=== PATIENT | female | born 2000 | race Caucasian/White ===

== ENCOUNTER 2022-12-18 11:57 | Emergency (ER) | payer OTHER ==
--- OUTSIDE RECORDS SUMMARY | 2022-12-18 12:08 | XMS REPORT | Continuity of Care Document ---
:2000 Author Organization [facility] t Address [address] [place] [address] Care Team Providers Name Role Phone ROBB JACKSON Attending Clinician Unavailable Robb Jackson Attending Clinician ROBB JACKSON Admitting Clinician Unavailable Robb Jackson Admitting Clinician Payers Payer Name Policy Type Policy Number Effective Date Expiration Date [facility] [id number] 2021 2024 PLAN STAR 00:00:00 00:00:00 Problems Condition Condition Condition Status Onset Resolution Last Treating Co mments Source Name Details Category Date Date Treatment Clinician Date Patient Patient Problem Active 2021-07-28 Me conrad currently currently 07-21 06:35:02 l 00:00: Henry mortensen (finding) (finding) 00 Active 07/21/2021 Problem 07/28/2021 [facility] ENCOUNTER ENCOUNTER Diagnosis Active 2019-102021-07-21 Memoria FOR FOR 2-17 19:17:00 l VAGINAL VAGINAL 00:00: [place] DELIVERY DELIVERY 00 Active 10/10/2020 [facility] Encounter Encounter Problem 2021-07-28 Memoria for for 06:35:02 l full-term full-term Herm agustin uncomplica uncomplica emily emily delivery delivery 07/28/2021 [facility] ENCOUNTER Diagnosis Active 2021-07-21 Memoria FOR ENCOUNTER 19:17:00 l FULL-TERM FOR [place] UNCOMPLICA FULL-TERM EMILY DE UNCOMPLICA EMILY DE Active [facility] Allergies, Adverse Reactions, Alerts Allergy Allergy Status Severity Reaction(s) Onset Inactive Treating Comm ents Source Name Type Date Date Clinician No Known No Known Active Memori a Medicati Medicati l on on [place] Allergie Allergie s s Other Other Active Memoria Food Food l Allergy< Allergy< Henry n sup>1</s sup>1</s up> up> Social History Smoking Status Start Date Stop Date Source Social History [facility] Medications Ordered Filled Start Stop Current Ordering Indication Dosage Frequency Signature Comments Components Source Medication Medication Date Date Medication? Clinician (SIG) Name Name ferrous No Notes: Memoria sulfate 07-23 Give with l 18:00: food. iron [place] elemental [id number] as ferrous sulfate Dose=___mg elemental iron tramadol Yes 50 mg = 1 Ramin akiko hydrochlori 07-23 tab, PO, l de 50 MG 14:20: Q6H, PRN Jena nn Oral Tablet 00 Pain, X 10 day, # 40 tab, 0 Refill(s) Docusate Yes 100 mg = 1 Mem oria Sodium 100 07-23 cap, PO, l MG Oral 14:19: BID, PRN Henry n Capsule 00 Constipati on, # 20 cap, 0 Refill(s), Pharmacy: [facility] #[id number], 154.94, cm, 07/21/21 9:33:00 CDT, Height, 95.4, kg, 07/21/21 9:33:00 CDT, Weight ferrous Yes 325 mg = 1 Ramin akiko sulfate 325 07-23 tab, PO, l mg oral 14:19: BID, give Jena nn enteric 00 with coated orange tablet juice, # 60 tab, 1 Refill(s), [id number], 154.94, cm, 07/21/21 9:33:00 CDT, Height, 95.4, kg, 07/21/21 9:33:00 CDT, Weight tramadol No Notes: Not Mem oria hydrochlori 07-23 to exceed l de 50 MG 14:17: 400mg/day. Her rodriguez Oral Tablet 00 (Same As: Ultram) No 1 tab, Memoria Multivitami 07-22 Route: PO, l ns oral 14:00: Drug Form: Herm agustin tablet 00 TAB, Dosing Weight 95.4, kg, Daily, Start date: 07/22/21 9:00:00 CDT, Duration: 30 day, Stop date: 08/20/21 9:00:00 CDT, 0 Saline No Notes: Memoria Flush 0.9% 07-22 Same as: l 14:00: BD Posiflush Sterile Ketorolac No 4 days Memor ia 07-22 l 05:00: MEDICATION WASTE Product Size: 30 mg Product Wasted: ___ mg Ibuprofen No Notes: Memori a 07-22 (Same as: l 05:00: Motrin) "Do Not Crush" Take with food. M-M-R II No Notes: Memoria 07-22 (Same as: l 04:00: M-M-R II) (measles-m umps-rubel la virus vaccine 0.5 ml INJ VL) WASTE: F/P - Red; E -Red GIVE PRIOR TO DISCHARGE Calcium No 1,000 mL, Memor ia Chloride 07-22 1,000 l 0.0014 04:00: ml/hr, MEQ/ML / 00 Infuse Potassium Over: 1 Chloride hr, Route: 0.004 IV, 1,000, MEQ/ML / Drug form: Sodium INJ, Chloride ONCALL, 0.103 Dosing MEQ/ML / Weight Sodium 95.4 kg, Lactate Start 0.028 date: MEQ/ML 07/21/21 Injectable 23:00:00 Solution CDT, Duration: 1 doses or times, For OB hemorrhage per physician direction, 0 Oxytocin No Notes: Memoria 07-22 (Same as: l 04:00: Pitocin) Hazardous Drug Group 3:Reproduc tive risk Hazardous Drug -- Refer to safe handling procedure PPE Matrix Misoprostol No Notes: Ramin akiko 07-22 (Same l 04:00: as:Cytotec ) Hazardous Drug Group 3:Reproduc tive risk Hazardous Drug -- Refer to safe handling procedure PPE Matrix Take with food Methylergon No Notes: Ramin akiko ovine 07-22 (Same l 04:00: as:Metherg 00 ine) Hazardous Drug Group 3:Reproduc tive risk Hazardous Drug -- Refer to safe handling procedure PPE Matrix Atropine No Notes: Memoria Sulfate 07-22 (Same As: l 0.025 MG / 04:00: Lomotil) rodriguez Diphenoxyla 00 MAX Adult te dose = 8 Hydrochlori tabs/day de 2.5 MG Oral Tablet Carboprost No Notes: Memor ia 07-22 (Same As: l 04:00: Hemabate) Tranexamic No Notes: Memor ia Acid 07-22 (Same As: l 04:00: Cyklokapro n) Docusate No Notes: Memoria 07-22 (Same as: l 03:02: Colace) (Do Not Crush) lanolin No Notes: Memoria topical 07-22 (Same l cream 03:02: as:Lanolin Henry n 00 ) Benzocaine No Notes: Memor ia / Menthol 07-22 Same as: l 03:02: Cepacol Simethicone No Notes: Ramni akiko 07-22 (Same as: l 03:02: Mylicon) Oxytocin No Notes: Memoria 07-22 Hazardous l 03:02: Drug Group 3:Reproduc tive risk Hazardous Drug -- Refer to safe handling procedure PPE Matrix Saline No Notes: Memoria Flush 0.9% 07-22 Same as: l 03:02: BD Posiflush Sterile Lactated No 1,000 mL, Ramin akiko Ringers IV 07-22 Rate: 125 l 1,000 mL 03:02: ml/hr, Infuse over: 8 hr, Route: IV, Dosing Weight 95.4 kg, Total Volume: 1,000, see special instructio n for rate while completing infusion from recovery for the 20 Units of Oxytocin., Start date: 07/21/21 22:02:00 CDT, Duration: 3... Bisacodyl No Notes: Memori a 07-22 (Same As: l 03:02: Dulcolax, [place] 00 Bisco-Lax) Naloxone No Notes: Memoria 07-22 Same as l 03:00: Narcan Kend[place] 00 Acetaminoph No Notes: Do M emoria en 07-22 not exceed l 02:21: 4 gm/day. Kendrick 00 (Same as: Tylenol) Acetaminoph No Notes: Ramin akiko en 325 MG / 07-22 (Same as: l Hydrocodone 02:21: [place] Jena nn Bitartrate 00 325/5) Do 5 MG Oral not exceed Tablet 4gm/day of acetaminop hen. Acetaminoph No Notes: Do M emoria en 325 MG / 07-22 not exceed l Hydrocodone 02:21: 4gm/day of Kendrick Bitartrate 00 acetaminop 10 MG Oral hen. (Same Tablet as: [place] 325/10) Ondansetron No Notes: Ramin akiko 07-22 (Same as: l 02:21: Zofran) [place] 00 MEDICATION WASTE Product Size: 4 mg Product Wasted: ___ mg Acetaminoph Yes Notes: Max Memoria en 07-22 acetaminop l 02:15: hen 4000 Kendrick 00 mg/day (4 gm/day). (Same as: Tylenol Extra Strength) Ondansetron No Notes: Ramin akiko 07-22 (Same as: l 02:15: Zofran) [place] 00 MEDICATION WASTE Product Size: 4 mg Product Wasted: ___ mg naloxone No Notes: Memoria 400 07-22 Same as l microgram + 02:15: Narcan Herm agustin Sodium 00 Chloride 0.9% IV 1,000 mL Meperidine Yes Notes: Memor ia 07-22 (Same as: l 02:15: Demerol) Kendrick 00 "Use Precaution in Elderly, Seizure disorders, and Renal impairment " ketOROLAC No IV, ONCE Ramin akiko (ANES) 07-22 l 01:38: Kend[place] 00 ondansetron No Route: IV, Memoria (ANES) 07-22 Drug form: l 01:23: INJ, ONCE, Stop date: 07/21/21 20:23:00 CDT dexamethaso No Route: IV, Memoria ne (ANES) 07-22 Drug form: l 01:23: INJ, ONCE, Kendrick 00 Stop date: 07/21/21 20:23:00 CDT morphine No Route: Memoria Sulfate 07-22 EPIDURAL, l (ANES) 01:23: Drug form: Jena nn 00 INJ, ONCE, Stop date: 07/21/21 20:23:00 CDT phenylephri No Route: IV, Memoria ne (ANES) 07-22 Drug form: l 01:13: INJ, ONCE, Stop date: 07/21/21 20:13:00 CDT glycopyrrol No Route: IV, Memoria ate (ANES) 07-22 Drug form: l 01:08: INJ, ONCE, Stop date: 07/21/21 20:08:00 CDT ePHEDrine No Route: IV, Me moria (ANES) 07-22 Drug form: l 01:08: INJ, ONCE, Stop date: 07/21/21 20:08:00 CDT azithromyci No Route: IV, Memoria n (ANES) 07-22 Drug form: l 01:03: INJ, ONCE, Stop date: 07/21/21 20:03:00 CDT fentaNYL No Route: Memoria (ANES) 07-22 EPIDURAL, l 00:57: Drug form: [place] 00 INJ, ONCE, Stop date: 07/21/21 19:57:00 CDT Nesacaine-M No Route: Ramin akiko PF (ANES) 07-22 EPIDURAL, l 00:57: Drug Form: [place] INJ, ONCE, Stop date: 07/21/21 19:57:00 CDT oxytocin No Route: IV, Mem oria (ANES) 30 07-22 Drug form: l unit 00:49: SOLIris Mortensen Start date: 07/21/21 19:49:00 CDT, Stop date: 07/21/21 20:49:00 CDT Lactated No Route: IV, Mem oria Ringers 07-22 Total l Injection 00:22: Volume: Jena nn IV (ANES) 00 1,000, 1000 mL Start date: 07/21/21 19:22:00 CDT, Stop date: 07/21/21 20:22:00 CDT Famotidine No Notes: Memor ia 07-22 (Same as: l 00:00: Pepcid) [place] 00 Can be dilute in 5-10cc NS IVP: Slow IV push over at least 2 minutes. Citric Acid No Notes: Ramin akiko / sodium 07-22 (Same As: l citrate 00:00: Bicitra) Henry n Calcium No 1,000 mL, Memor ia Chloride 07-22 1,000 l 0.0014 00:00: ml/hr, Kend[place] MEQ/ML / 00 Infuse Potassium Over: 1 Chloride hr, Route: 0.004 IV, 1,000, MEQ/ML / Drug form: Sodium INJ, Chloride ONCALL, 0.103 Dosing MEQ/ML / Weight Sodium 95.4 kg, Lactate Start 0.028 date: MEQ/ML 07/21/21 Injectable 19:00:00 Solution CDT, Duration: 1 doses or times, For OB hemorrhage per physician direction, 0 Oxytocin No Notes: Memoria 07-22 (Same as: l 00:00: Pitocin) Hazardous Drug Group 3:Reproduc tive risk Hazardous Drug -- Refer to safe handling procedure PPE Matrix Misoprostol No Notes: Ramin akiko 07-22 (Same l 00:00: as:Cytotec ) Hazardous Drug Group 3:Reproduc tive risk Hazardous Drug -- Refer to safe handling procedure PPE Matrix Take with food Methylergon No Notes: Ramin akiko ovine - (Same l 00:00: as:Metherg ine) Hazardous Drug Group 3:Reproduc tive risk Hazardous Drug -- Refer to safe handling procedure PPE Matrix Carboprost No Notes: Memor ia - (Same As: l 00:00: Hemabate) Tranexamic No Notes: Memor ia Acid 07-22 (Same As: l 00:00: Cyklokapro Kendrick 00 n) Ancef + No Notes: Memoria sterile 07-21 (Same As: l water 20 mL 23:58: Ancef, Herm agustin Kefzol) MEDICATION WASTE Product Size: 1000 mg Product Wasted: ___ mg Calcium No 1,000 mL, Memor ia Chloride 07-21 Rate: 125 l 0.0014 23:57: ml/hr, Kend[place] MEQ/ML / 00 Infuse Potassium over: 8 Chloride hr, Route: 0.004 IV, Dosing MEQ/ML / Weight Sodium 95.4 kg, Chloride Total 0.103 Volume: MEQ/ML / 1,000, see Sodium special Lactate instructio 0.028 ns when MEQ/ML infusing Injectable 20 Units Solution of Oxytocin., Start date: 07/21/21 18:57:00 CDT, Duration: 30 day, Stop date: 08/20/21 18:56:00 CDT, B... oxytocin 30 No Notes: Ramin akiko units in NS 07-21 Hazardous l 500 mL 23:57: Drug Group Jena nn (Bolus) IV 00 3:Reproduc 10.02 unit tive risk Hazardous Drug -- Refer to safe handling procedure PPE Matrix oxytocin 30 No Notes: Ramin akiko units in NS 07-21 Hazardous l 500 mL IV 23:57: Drug Group He rmann 19.98 unit 00 3:Reproduc tive risk Hazardous Drug -- Refer to safe handling procedure PPE Matrix Ondansetron No Notes: Ramin akiko 07-21 (Same as: l 23:57: Zofran) MEDICATION WASTE Product Size: 4 mg Product Wasted: ___ mg Metoclopram No Notes: Ramin akiko clyde 07-21 (Same as: l 23:57: Reglan) Oxytocin No Notes: Memoria 07-21 Hazardous l 23:57: Drug Group [place] 00 3:Reproduc tive risk Hazardous Drug -- Refer to safe handling procedure PPE Matrix Atropine Yes Notes: Memoria Sulfate 07-21 (Same As: l 0.025 MG / 23:57: Lomotil) Her rodriguez Diphenoxyla 00 MAX Adult te dose = 8 Hydrochlori tabs/day de 2.5 MG Oral Tablet Oxytocin No Notes: Memoria 07-21 Hazardous l 22:28: Drug Group 3:Reproduc tive risk Hazardous Drug -- Refer to safe handling procedure PPE Matrix Oxytocin No Notes: Memoria 07-21 Hazardous l 22:07: Drug Group 3:Reproduc tive risk Hazardous Drug -- Refer to safe handling procedure PPE Matrix Procardia No 10 mg, Memori a 07-21 Route: PO, l 20:14: ONCE, Dosing Weight 95.4, kg, Start date: 07/21/21 15:14:00 CDT, Stop date: 07/21/21 15:14:00 CDT Penicillin No 2,500,000 Me moria G 07-21 unit, 50 l 20:00: mL, Route: IVPB, Drug form: INJ, ABXQ4H, Dosing Weight 95.4, kg, Start date: 07/21/21 15:00:00 CDT, Duration: 30 day, Stop date: 08/20/21 11:00:00 CDT, Infuse over: 30, 0 Procardia No 10 mg, Memori a 07-21 Route: PO, l 19:47: ONCE, Dosing Weight 95.4, kg, Start date: 07/21/21 14:47:00 CDT, Stop date: 07/21/21 14:47:00 CDT Cytotec Yes Notes: Memoria 07-21 (Same l 16:00: as:Cytotec ) Hazardous Drug Group 3:Reproduc tive risk Hazardous Drug -- Refer to safe handling procedure PPE Matrix Take with food Penicillin No Notes: Memor ia G Potassium 07-21 (Same as: l [id number] 16:00: Pfizerpen) Herm agustin UNT/ML 00 Injectable MEDICATION Solution WASTE Product Size: 5,000,000 unit Product Wasted: ___ unit Ibuprofen No Notes: Memori a 07-21 (Same as: l 15:00: Motrin) "Do Not Crush" Take with food. Calcium No 1,000 mL, Memor ia Chloride 07-21 1,000 l 0.0014 15:00: ml/hr, MEQ/ML 00 Infuse Potassium Over: 1 Chloride hr, Route: 0.004 IV, 1,000, MEQ/ML / Drug form: Sodium INJ, Chloride ONCALL, 0.103 Dosing MEQ/ML / Weight Sodium 95.4 kg, Lactate Start 0.028 date: MEQ/ML 07/21/21 Injectable 10:00:00 Solution CDT, Duration: 1 doses or times, For OB hemorrhage per physician direction, 0 Oxytocin No Notes: Memoria 07-21 (Same as: l 15:00: Pitocin) Hazardous Drug Group 3:Reproduc tive risk Hazardous Drug -- Refer to safe handling procedure PPE Matrix Misoprostol No Notes: Ramin akiko 07-21 (Same l 15:00: as:Cytotec ) Hazardous Drug Group 3:Reproduc tive risk Hazardous Drug -- Refer to safe handling procedure PPE Matrix Take with food Methylergon No Notes: Ramin akiko ovine 07-21 (Same l 15:00: as:Metherg ine) Hazardous Drug Group 3:Reproduc tive risk Hazardous Drug -- Refer to safe handling procedure PPE Matrix Atropine No Notes: Memoria Sulfate 07-21 (Same As: l 0.025 MG / 15:00: Lomotil) Her rodriguez Diphenoxyla MAX Adult te dose = 8 Hydrochlori tabs/day de 2.5 MG Oral Tablet Carboprost No Notes: Memor ia 07-21 (Same As: l 15:00: Hemabate) Tranexamic No Notes: Memor ia Acid 07-21 (Same As: l 15:00: Cyklokapro n) PNV No PO, Daily, Memoria 07-21 0 l 14:57: Refill(s) Calcium No 1,000 mL, Memor ia Chloride 07-21 Rate: 125 l 0.0014 14:38: ml/hr, Kendrick MEQ/ML / 00 Infuse Potassium over: 8 Chloride hr, Route: 0.004 IV, Dosing MEQ/ML / Weight Sodium 95.4 kg, Chloride Total 0.103 Volume: MEQ/ML / 1,000, see Sodium special Lactate instructio 0.028 ns when MEQ/ML infusing Injectable 20 Units Solution of Oxytocin., Start date: 07/21/21 9:38:00 CDT, Duration: 30 day, Stop date: 08/20/21 9:37:00 CDT, BSA... oxytocin 30 No Notes: Ramin akiko units in NS 07-21 Hazardous l 500 mL 14:38: Drug Group Jena nn (Bolus) IV 00 3:Reproduc 10.02 unit tive risk Hazardous Drug -- Refer to safe handling procedure PPE Matrix oxytocin 30 No Notes: Ramin akiko units in NS 07-21 Hazardous l 500 mL IV 14:38: Drug Group He rmann 19.98 unit 00 3:Reproduc tive risk Hazardous Drug -- Refer to safe handling procedure PPE Matrix Butorphanol No Notes: Ramin akiko 07-21 (Same As: l 14:38: Stadol) Kend[place] 00 Acetaminoph No Notes: Ramin akiko en 325 MG / 07-21 (Same as: l Hydrocodone 14:38: [place] Jena nn Bitartrate 00 325/5) Do 5 MG Oral not exceed Tablet 4gm/day of acetaminop hen. Acetaminoph No Notes: Do M emoria en 325 MG / 07-21 not exceed l Hydrocodone 14:38: 4gm/day of Kendrick Bitartrate 00 acetaminop 10 MG Oral hen. (Same Tablet as: [place] 325/10) Ondansetron No Notes: Ramin akiko 07-21 (Same as: l 14:38: Zofran) Kendrick 00 MEDICATION WASTE Product Size: 4 mg Product Wasted: ___ mg Lidocaine No Notes: Memori a Hydrochlori 07-21 Preservati l de 10 MG/ML 14:38: ve free. He rmann Injectable 00 (Same as: Solution Xylocaine MPF) Terbutaline No Notes: Ramin akiko 07-21 DO NOT l 14:38: USE IN Kendrick HAND LACER AREA (Same As: Brethine) Dermoplast No Notes: Memor ia 20% topical 07-21 (Same As: l spray 14:38: Dermoplast Henry n 00 ) WASTE: Aerosol - Return to Pharmacy FOR EXTERNAL USE ONLY Oxytocin No Notes: Memoria 07-21 Hazardous l 14:38: Drug Group [place] 00 3:Reproduc tive risk Hazardous Drug -- Refer to safe handling procedure PPE Matrix tetanus/dip No Notes: Ramin akiko hth/pertuss 07-21 Therapeuti l (Tdap) 05:00: c [place] adult/adol 00 Interchang e for Boostrix Immunizations Ordered Immunization Filled Immunization Date Status Commen ts Source Name Name [id number] 2021-04-05 Completed Ramin rial [id number] 00:00:00 Herm agustin [id number] 2021-03-15 Completed Ramin rial [id number] 00:00:00 Herm agustin Vital Signs Vital Name Observation Time Observation Value Comments Source Temperature Oral (F) 2021-07-24 13:00:00 98.2 F [facility] [place] Heart Rate 2021-07-24 13:00:00 [facility] [place] Respitory Rate 2021-07-24 13:00:00 Memori al [place] Systolic (mm Hg) 2021-07-24 13:00:00 Ramin rial [place] Diastolic (mm Hg) 2021-07-24 13:00:00 Mem orial [place] Temperature Oral (F) 2021-07-24 04:00:00 97.9 F [facility] [place] Heart Rate 2021-07-24 04:00:00 [facility] [place] Respitory Rate 2021-07-24 04:00:00 Memori al [place] Systolic (mm Hg) 2021-07-24 04:00:00 Ramin rial [place] Diastolic (mm Hg) 2021-07-24 04:00:00 Mem orial [place] Temperature Oral (F) 2021-07-24 00:00:00 98.3 F [facility] [place] Heart Rate 2021-07-24 00:00:00 [facility] [place] Respitory Rate 2021-07-24 00:00:00 Memori al [place] Systolic (mm Hg) 2021-07-24 00:00:00 Ramin Marks Diastolic (mm Hg) 2021-07-24 00:00:00 Mem yanet Marks Height 2021-07-21 14:33:00 154.94 cm Babak Marks Weight 2021-07-21 14:33:00 Babak Marks BMI Calculated 2021-07-21 14:33:00 Memjammie Pereira Procedures This patient has no known procedures. Encounters Start End Encounter Admission Attending Care Care Encounter Source Date/Time Date/Time Type Type Clinicians Facility Department ID 2021-10-20 Outpatient [facility] [id number] [place] 01:05:36 Health 2021-07-21 Inpatient [facility] 12[address] [facility] 09:19:00 ROBB 2021-07-21 2021-07-24 Inpatient [facility] [id number] Memoria 14:19:00 16:52:00 r Kendrick 24 l [facility] 2021-07-21 2021-07-[address] [facility] [id number] 09:19:00 11:52:00 Robb 24 [place] 2021-07-21 2021-07-[address] [facility] [id number] 09:19:00 11:52:00 Robb Shilpi Adrian Results Test Description Test Time Test Comments Results Result Comments Source HEMATOLOGY 2021-07-22 15:58:00 Test Item Value Reference Range Interpretation Comme nts Hgb (test code = Hgb) 9.5 12.0-16.0 [id number] 15:58:00 Test Item Value Reference Range Interpretation Comments Hct (test code = Hct) 28.5 36.0-48.0 [facility] [id number] 21:14:00 Test Item Value Reference Range Interpretation Comments U Creatinine (test code = U 105.00 Creatinine) [facility] [id number] 21:14:00 Test Item Value Reference Range Interpretation Comments U Protein (test code = U Protein) 21.1 [facility] [id number] 21:14:00 Test Item Value Reference Range Interpretation Comments U Prot/Creat (test code = U 0.20 1 Prot/Creat) [facility] [id number] 14:40:00 Test Item Value Reference Range Interpretation Comments ABO/Rh (test code = ABO/Rh) O POS [facility] [id number] 14:40:00 Test Item Value Reference Range Interpretation Comments Antibody Scrn (test Negative (07/21/21 9:40 code = Antibody Scrn) AM) [facility]2021-09-27 14:40:00 Test Item Value Reference Range Interpretation Comments Rhig Reqd (test code = See Note 1(07/21/21 9:40 Rhig Reqd) AM) [facility]2021-09-27 14:40:00 Test Item Value Reference Range Interpretation Comments Glucose Lvl (test code = Glucose Lvl) 77 70-99 [facility] [id number] 14:40:00 Test Item Value Reference Range Interpretation Comments BUN (test code = BUN) 10 7-22 [facility]2021-09-27 14:40:00 Test Item Value Reference Range Interpretation Comments Creatinine Lvl (test code = Creatinine 0.50 0.50-1.40 Lvl) [facility]2021-09-27 14:40:00 Test Item Value Reference Range Interpretation Comments Sodium Lvl (test code = Sodium Lvl) 136 135-145 [facility] [id number] 14:40:00 Test Item Value Reference Range Interpretation Comments Potassium Lvl (test code = Potassium 4.5 3.5-5.1 Lvl) [facility] [id number] 14:40:00 Test Item Value Reference Range Interpretation Comments Chloride Lvl (test code = Chloride Lvl) 106 95-109 [facility] [id number] 14:40:00 Test Item Value Reference Range Interpretation Comments CO2 (test code = CO2) 22 24-32 [facility] [id number] 14:40:00 Test Item Value Reference Range Interpretation Comments Calcium Lvl (test code = Calcium Lvl) 9.0 8.5-10.5 [facility] [id number] 14:40:00 Test Item Value Reference Range Interpretation Comments Total Protein (test code = Total 6.6 6.4-8.4 Protein) [place] [id number] 14:40:00 Test Item Value Reference Range Interpretation Comments Albumin Lvl (test code = Albumin Lvl) 2.9 3.5-5.0 [place] [id number] 14:40:00 Test Item Value Reference Range Interpretation Comments ALT (test code = ALT) 12 See_Comment [Auto mated message] The system which ge nerated this result transmit emily reference range : <=65. The reference range was not used to interpr et this result as aguila l/abnormal. [place] [id number] 14:40:00 Test Item Value Reference Range Interpretation Comments AST (test code = AST) 23 See_Comment [Auto mated message] The system which ge nerated this result transmit emily reference range : <=37. The reference range was not used to interpr et this result as aguila l/abnormal. [place] [id number] 14:40:00 Test Item Value Reference Range Interpretation Comments Alk Phos (test code = Alk Phos) 152 39-136 [place] [id number] 14:40:00 Test Item Value Reference Range Interpretation Comments Bili Total (test code = Bili Total) 0.2 0.2-1.3 [place] [id number] 14:40:00 Test Item Value Reference Range Interpretation Comments AGAP (test code = AGAP) 12.5 10.0-20.0 [place] [id number] 14:40:00 Test Item Value Reference Range Interpretation Comments B/C Ratio (test code = B/C Ratio) 20 1 6-25 [place] [id number] 14:40:00 Test Item Value Reference Range Interpretation Comments Globulin (test code = Globulin) 3.7 2.7-4.2 [place] [id number] 14:40:00 Test Item Value Reference Range Interpretation Comments A/G Ratio (test code = A/G Ratio) 0.8 1 0.7-1.6 [place] [id number] 14:40:00 Test Item Value Reference Range Interpretation Comments eGFR (test code = eGFR) [id number] 14:40:00 Test Item Value Reference Range Interpretation Comments Segs (test code = Segs) 75.5 45.0-75.0 [place] [id number] 14:40:00 Test Item Value Reference Range Interpretation Comments Lymphocytes (test code = Lymphocytes) 19.4 20.0-40.0 [place] [id number] 14:40:00 Test Item Value Reference Range Interpretation Comments Monocytes (test code = Monocytes) 4.3 2.0-12.0 [place] [id number] 14:40:00 Test Item Value Reference Range Interpretation Comments Eosinophils (test code = 0.3 See_Comment [A utomated message] The Eosinophils) system which ge nerated this result tra nsmitted reference range : <=4.0. The reference r mima was not used to int erpret this result as normal/abnormal . [place] [id number] 14:40:00 Test Item Value Reference Range Interpretation Comments Basophils (test code = 0.5 See_Comment [Aut omated message] The Basophils) system which ge nerated this result tra nsmitted reference range : <=1.0. The reference r mima was not used to int erpret this result as normal/abnormal . [place] [id number] 14:40:00 Test Item Value Reference Range Interpretation Comments Neutrophils # (test code = Neutrophils 7.6 1.5-8.1 #) [place] [id number] 14:40:00 Test Item Value Reference Range Interpretation Comments Lymphocytes # (test code = Lymphocytes 2.0 1.0-5.5 #) [place] [id number] 14:40:00 Test Item Value Reference Range Interpretation Comments Monocytes # (test code 0.4 See_Comment [Aut omated message] The = Monocytes #) system which generated this result tra nsmitted reference range : <=0.8. The reference r mima was not used to int erpret this result as normal/abnormal . [place] [id number] 14:40:00 Test Item Value Reference Range Interpretation Comments Basophils # (test code 0.1 See_Comment [Aut omated message] The = Basophils #) system which generated this result tra nsmitted reference range : <=0.2. The reference r mima was not used to int erpret this result as normal/abnormal . [id number] 14:40:00 Test Item Value Reference Range Interpretation Comments WBC X 10x3 (test code = WBC X 10x3) 10.0 3.7-10.4 [id number] 14:40:00 Test Item Value Reference Range Interpretation Comments RBC X 10x6 (test code = RBC X 10x6) 4.23 4.20-5.40 [place] [id number] 14:40:00 Test Item Value Reference Range Interpretation Comments Hgb (test code = Hgb) 12.0 12.0-16.0 [place] [id number] 14:40:00 Test Item Value Reference Range Interpretation Comments Hct (test code = Hct) 36.3 36.0-48.0 [place] [id number] 14:40:00 Test Item Value Reference Range Interpretation Comments MCV (test code = MCV) 85.7 80.0-98.0 [place] [id number] 14:40:00 Test Item Value Reference Range Interpretation Comments MCH (test code = MCH) 28.5 pg 27.0-31.0 [facility]GphlqtsWECYOFPSVO3605-80-32 14:40:00 Test Item Value Reference Range Interpretation Comments MCHC (test code = MCHC) 33.2 32.0-36.0 [facility]QyulbuvJBQOIETWEW7010-26-18 14:40:00 Test Item Value Reference Range Interpretation Comments RDW (test code = RDW) 16.3 11.5-14.5 [facility] [id number] 14:40:00 Test Item Value Reference Range Interpretation Comments Platelet (test code = Platelet) 232 133-450 [facility] [id number] 14:40:00 Test Item Value Reference Range Interpretation Comments MPV (test code = MPV) 9.7 7.4-10.4 [place] [id number] 14:40:00 Test Item Value Reference Range Interpretation Comments Hep Bs Ag (test code Negative *NA*(07/21/21 = Hep Bs Ag) 9:40 AM) [place] [id number] 14:40:00 Test Item Value Reference Range Interpretation Comments HIV. (test code = Negative *NA*(07/21/21 HIV.) 9:40 AM) [facility]3414[facility]51-88 14:40:00 Test Item Value Reference Range Interpretation Comments Treponemal Ab (test code Non-Reactive = Treponemal Ab) *NA*(07/21/21 9:40 AM) [facility] HospitalDbpusljAYCYAYWJDF6040-86-28 14:40:00 Test Item Value Reference Range Interpretation Comments Coronavirus (COVID-19) Not Detected (07/21/21 ARSH (test code = 9:40 AM) Coronavirus (COVID-19) ARSH) [facility]
[2022-12-18] MEDS ORDERED: NA CHLORIDE 0.9% 1,000 ML ONE (12:17)
[2022-12-18 12:34] LABS: Absolute Lymphocytes (CBC) 2.1 K/uL (0.7-4.9); Hematocrit 36.9 % (36.0-45.0); Lymphocytes % 21.2 % (15.3-44.8); MCV 87.4 fL (80-100); MPV 7.9 fL (7.6-11.3); RBC Red Blood Cell Count 4.23 M/uL (3.86-4.86)
[2022-12-18 12:51] LABS: Albumin 3.1 g/dL (3.4-5.0); Bilirubin Total 0.1 mg/dL (0.2-1.0); Potassium 3.6 mmol/L (3.5-5.1); Protein, Total 6.7 g/dL (6.4-8.2)
[2022-12-18 13:17] LABS: Urine Blood 3+ (Negative); Urine Glucose Negative (Negative); Urine Protein 2+ (Negative)
[2022-12-18 13:29] LABS: Urine Bacteria >50 /HPF (<20); Urine Mucus Slight /HPF (None Seen); Urine RBC >50 /HPF (None Seen); Urine WBC Clump Occasional /HPF (None Seen)
[2022-12-18] MEDS ORDERED: CEFTRIAXONE 1000 MG/VIAL ONE (13:31)
--- NOTE | 2022-12-18 15:18 | RAD REPORT ---
EXAM DESCRIPTION: US - Transvaginal OB - 12/18/2022 2:02 pm CLINICAL HISTORY: ABD CRAMPING, COMPARISON: No comparisons TECHNIQUE: Sonographic grayscale and color flow images of a first-trimester were obtained through approach. FINDINGS: A single intrauterine is identified. Cochran-rump length measures 17.9 millimeters, corresponding to gestational age of 8 weeks, 0 days. cardiac pulsations were not elicited. No yolk sac is visualized. Maternal ovaries were not visualized bilaterally. No free fluid. IMPRESSION: 1. Single intrauterine with a calculated gestational age: 8 weeks, 0 days. 2. Unfortunately, no cardiac pulsations were elicited at this time, raising concern for d emise. Please correlate clinically and with serial beta HCG testing. The findings were communicated to Danette Mooney on 12/18/2022 at 15:14 hours.
--- NOTE | 2022-12-18 15:52 | ER ---
Nurse's Notes [facility] Name: Elida Chapin Age: 22 yrs Sex: Female : 2000 Arrival Date: 12/18/2022 Time: 12:05 Bed 18 Private MD: Diagnosis: Syncope Near;8 weeks gestation of -No heart tones noted per Radiologist;UTI/ Urinary tract infection, site not specified Presentation: 12/18 12:05 Chief complaint: EMS states: pt was at hair salon, started to feel dizzy and then had iw syncopal episode, is approx 8 weeks , has had some episodes of nausea this week, no vomiting. Coronavirus screen: At this time, the client does not indicate any symptoms associated with coronavirus-19. Ebola Screen: Patient negative for fever greater than or equal to 101.5 degrees Fahrenheit, and additional compatible Ebola Virus Disease symptoms Patient denies exposure to infectious person. Patient denies travel to an Ebola-affected area in the 21 days before illness onset. No symptoms or risks identified at this time. Initial Sepsis Screen: Does the patient meet any 2 criteria? No. Patient's initial sepsis screen is negative. Does the patient have a suspected source of infection? No. Patient's initial sepsis screen is negative. Risk Assessment: Do you want to hurt yourself or someone else? Patient reports no desire to harm self or others. Onset of symptoms was December 18, 2022. 12:05 Method Of Arrival: EMS: [facility] iw 12:05 Acuity: REINALDO 3 iw 12:07 Care prior to arrival: IV initiated. 20 GA, Glucose check: 148. iw Historical: - Allergies: 12:09 No Known Allergies; iw - Home Meds: 12:09 None [Active]; iw - PMHx: 12:09 None; iw - PSHx: 12:09 None; iw Screenin:00 [facility] ED Fall Risk Assessment (Adult) History of falling in the last 3 months, mb9 including since admission Yes- physiologic fall (2 pts) Confusion or Disorientation No (0 pts) Intoxicated or Sedated No (0 pts) Impaired Gait No (0 pts) Mobility Assist Device Used No (0 pt) Altered Elimination No (0 pt) Score/Fall Risk Level 0 - 2 = Low Risk Oriented to surroundings, Maintained a safe environment, Educated pt \\T\\ family on fall prevention, incl call for assistance when getting out of bed. Abuse screen: Denies threats or abuse. Nutritional screening: No deficits noted. Tuberculosis screening: No symptoms or risk factors identified. Assessment: 12:20 General: Appears uncomfortable, Behavior is anxious. mb9 12:20 Pain: Denies pain. Neuro: Level of Consciousness is awake, alert, obeys commands, mb9 Oriented to person, place, time, situation, Appropriate for age Reports dizziness, weakness. Cardiovascular: Rhythm is sinus bradycardia. Respiratory: Airway is patent Respiratory effort is even, unlabored, Respiratory pattern is regular, symmetrical. GI: Abdomen is round non-distended, Bowel sounds present X 4 quads. Abd is soft and non tender X 4 quads. : No signs and/or symptoms were reported regarding the genitourinary system. EENT: No signs and/or symptoms were reported regarding the EENT system. Derm: Skin is pink, warm \\T\\ dry. Musculoskeletal: Range of motion: intact in all extremities. 13:19 Reassessment: pt able to ambulate to restroom without feeling dizzy or lightheaded. Pt mb9 states "I was bleeding when I peed and there were small clots." OPERATIONAL REVIEW SERGEANT, Vinicio, notified. 14:13 Reassessment: Patient and/or family updated on plan of care and expected duration. Pain mb9 level reassessed. Patient is alert, oriented x 3, equal unlabored respirations, skin warm/dry/pink. Patient states feeling better. Patient states symptoms have improved. Neuro: Denies weakness dizziness. 15:41 Reassessment: No changes from previously documented assessment. Patient and/or family mb9 updated on plan of care and expected duration. Pain level reassessed. Patient is alert, oriented x 3, equal unlabored respirations, skin warm/dry/pink. Patient states feeling better. Patient states symptoms have improved. Vital Signs: 12:05 BP 112 / 59; Pulse 52; Resp 16; Pulse Ox 100% on R/A; iw 12:59 BP 99 / 58; Pulse 54; Resp 18; Pulse Ox 100% on R/A; Pain 0/10; mb9 13:12 BP 95 / 38 Supine; Pulse 54; mb9 13:14 BP 102 / 58 Sitting; Pulse 65; mb9 13:16 BP 107 / 53 Standing; Pulse 68; mb9 14:13 BP 100 / 60; Pulse 52; Resp 17; Pulse Ox 100% on R/A; Pain 0/10; mb9 15:42 BP 107 / 54; Pulse 55; Resp 16; Pulse Ox 100% on R/A; Pain 0/10; mb9 ED Course: 12:05 Patient arrived in ED. iw 12:06 Mike Pulliam MD is Attending Physician. tania 12:07 Triage completed. iw 12:09 Danette Mooney FNP-C is PHCP. snw 12:09 Danette Mooney FNP-C is PHCP. snw 12:10 Arm band placed on. iw 12:11 Whitney Rojas RN is Primary Nurse. mb9 12:15 Placed in gown. Bed in low position. Call light in reach. Side rails up X 1. Client mb9 placed on continuous cardiac and pulse oximetry monitoring. NIBP monitoring applied. monitor tech on. 12:28 CMP Sent. mb9 12:28 Abo/rh Typing Sent. mb9 12:28 CBC with Diff Sent. mb9 12:28 EKG done, by ED staff, reviewed by Danette BACA. Maintain EMS IV. Dressing mb9 intact. Good blood return noted. Site clean \\T\\ dry. Gauge \\T\\ site: 20 gauge in left AC. 13:01 No provider procedures requiring assistance completed. mb9 13:16 Urine Culture Sent. mm9 13:16 Urine Microscopic Only Sent. mm9 13:17 Urine collected: clean catch specimen, cloudy. mm9 13:22 Urine --Ancillary (enter results) Sent. mb9 14:04 US Transvaginal Ob In Process Unspecified. EDMS 15:54 IV discontinued, intact, bleeding controlled, No redness/swelling at site. Pressure mb9 dressing applied. Administered Medications: 12:28 Drug: NS 0.9% 1000 ml Route: IV; Rate: 1000 ml; Site: left antecubital; mb9 13:32 Drug: Rocephin (cefTRIAXone) 1 grams Route: IV; Rate: calculated rate; Site: left mb9 antecubital; Medication: 13:01 VIS not applicable for this client. mb9 Outcome: 15:51 Discharge ordered by . snw 16:06 Discharged to home ambulatory. mb9 16:06 Condition: stable 16:06 Discharge instructions given to patient, Instructed on discharge instructions, follow up and referral plans. Demonstrated understanding of instructions, follow-up care, medications, Prescriptions given X 1. 16:06 Patient left the ED. mb9 Addendum: 12/20/2022 07:53 Addendum: Culture Results: Positive urine culture. No further action required. Bacteria e b sensitive to prescribed antibiotic. Signatures: Dispatcher [employer] EDMike Tran MD MD cha Waters, Shelly, STEAM FINISHER-C STEAM FINISHER-Csnw Leydi Rutledge, RN RN Monse Rasheed Maria 9 Bob, Whitney Fortune RN RN mb9
--- NOTE | 2022-12-18 15:52 | EDPHYS ---
Physician Documentation [facility] Name: Elida Chapin Age: 22 yrs Sex: Female : 2000 Arrival Date: 12/18/2022 Time: 12:05 Bed 18 Private MD: ED Physician Mike Pulliam HPI: 12/18 12:13 This 22 yrs old Female presents to ER via EMS with complaints of Syncope. snw 12:13 The patient has experienced syncope, lost consciousness. Onset: The symptoms/episode snw began/occurred suddenly. Duration: This was a single episode, that lasted an unknown period of time. Context: the episode(s) was witnessed, language and literature division chair. Associated injury: The patient did not suffer any apparent associated injury. Associated signs and symptoms: Pertinent positives: lightheadedness, nausea. Current symptoms: Currently, the patient is not experiencing any symptoms, the patient feels back to baseline. The patient has experienced a previous episode, last week, but today's symptoms are worse. The patient has not recently seen a physician. pt is 8wks . Historical: - Allergies: 12:09 No Known Allergies; iw - Home Meds: 12:09 None [Active]; iw - PMHx: 12:09 None; iw - PSHx: 12:09 None; iw ROS: 12:12 Eyes: Negative for injury, pain, redness, and discharge, ENT: Negative for injury, snw pain, and discharge, Neck: Negative for injury, pain, and swelling, Cardiovascular: Negative for chest pain, palpitations, and edema, Respiratory: Negative for shortness of breath, cough, wheezing, and pleuritic chest pain, Abdomen/GI: Negative for abdominal pain, nausea, vomiting, diarrhea, and constipation, Back: Negative for injury and pain, : Negative for injury, bleeding, discharge, and swelling, MS/Extremity: Negative for injury and deformity, Skin: Negative for injury, rash, and discoloration, Psych: Negative for depression, anxiety, suicide ideation, homicidal ideation, and hallucinations. 12:12 Constitutional: Positive for malaise, . 12:12 Neuro: Positive for syncope. Exam: 12:11 Constitutional: This is a well developed, well nourished patient who is awake, alert, snw and in no acute distress. Head/Face: Normocephalic, atraumatic. Eyes: Pupils equal round and reactive to light, extra-ocular motions intact. Lids and lashes normal. Conjunctiva and sclera are non-icteric and not injected. Cornea within normal limits. Periorbital areas with no swelling, redness, or edema. ENT: Nares patent. No nasal discharge, no septal abnormalities noted. Tympanic membranes are normal and external auditory canals are clear. Oropharynx with no redness, swelling, or masses, exudates, or evidence of obstruction, uvula midline. Mucous membranes moist. Neck: Trachea midline, no thyromegaly or masses palpated, and no cervical lymphadenopathy. Supple, full range of motion without nuchal rigidity, or vertebral point tenderness. No Meningismus. Chest/axilla: Normal chest wall appearance and motion. Nontender with no deformity. No lesions are appreciated. 12:11 Respiratory: Lungs have equal breath sounds bilaterally, clear to auscultation and percussion. No rales, rhonchi or wheezes noted. No increased work of breathing, no retractions or nasal flaring. Abdomen/GI: Soft, non-tender, with normal bowel sounds. No distension or tympany. No guarding or rebound. No evidence of tenderness throughout. Back: No spinal tenderness. No costovertebral tenderness. Full range of motion. Skin: Warm, dry with normal turgor. Normal color with no rashes, no lesions, and no evidence of cellulitis. MS/ Extremity: Pulses equal, no cyanosis. Neurovascular intact. Full, normal range of motion. Neuro: Awake and alert, GCS 15, oriented to person, place, time, and situation. Cranial nerves II-XII grossly intact. Motor strength 5/5 in all extremities. Sensory grossly intact. Cerebellar exam normal. Normal gait. Psych: Awake, alert, with orientation to person, place and time. Behavior, mood, and affect are within normal limits. 12:11 Cardiovascular: Rate: bradycardic, Heart sounds: normal. Vital Signs: 12:05 BP 112 / 59; Pulse 52; Resp 16; Pulse Ox 100% on R/A; iw 12:59 BP 99 / 58; Pulse 54; Resp 18; Pulse Ox 100% on R/A; Pain 0/10; mb9 13:12 BP 95 / 38 Supine; Pulse 54; mb9 13:14 BP 102 / 58 Sitting; Pulse 65; mb9 13:16 BP 107 / 53 Standing; Pulse 68; mb9 14:13 BP 100 / 60; Pulse 52; Resp 17; Pulse Ox 100% on R/A; Pain 0/10; mb9 15:42 BP 107 / 54; Pulse 55; Resp 16; Pulse Ox 100% on R/A; Pain 0/10; mb9 MDM: 12:06 Patient medically screened. tania 15:46 Differential Diagnosis: idiopathic syncope, , seizure, vasovagal episode. ECG snw was reviewed by the Attending Physician. Data reviewed: vital signs, nurses notes, lab test result(s), EKG, radiologic studies, ultrasound, shows 8wk IUP concerning for demise. Pt notified. States she had a previous "for fun" ultrasound and heartbeat was picked up. Will await HCG level and have pt f/u electric motor rebuilder, return precautions for increased bleeding, pain, fever given. Pt voices understanding. To see OB for repeat HCG Wednesday.. Counseling: I had a detailed discussion with the patient and/or guardian regarding: the historical points, exam findings, and any diagnostic results supporting the discharge/admit diagnosis, lab results, radiology results, the need for outpatient follow up, to return to the emergency department if symptoms worsen or persist or if there are any questions or concerns that arise at home. Response to treatment: the patient's symptoms have mildly improved after treatment. Special discussion: Based on the patient's Hx, exam, and Dx evaluation, there is no indication for emergent surgery or inpatient Tx. It is understood by the patient/guardian that if the Sx's persist or worsen they need to return immediately for re-evaluation. Based on the history and exam findings, there is no indication for further emergent testing or inpatient evaluation. I discussed with the patient/guardian the need to see the OB Gyne specialist for further evaluation of the symptoms. I discussed with the patient/guardian the need to see the primary care provider for further evaluation of the symptoms. 12/18 12:11 Order name: CBC with Diff; Complete Time: 12:54 snw 12/18 12:11 Order name: CMP snw 12/18 12:11 Order name: Abo/rh Typing; Complete Time: 13:41 snw 12/18 12:13 Order name: Urine Culture snw 12/18 12:13 Order name: Urine Microscopic Only; Complete Time: 13:37 snw 12/18 13:17 Order name: Urine Dipstick-Ancillary; Complete Time: 13:21 EDMS 12/18 12:11 Order name: EKG; Complete Time: 12:11 snw 12/18 13:20 Order name: Urine --Ancillary (enter results); Complete Time: 14:06 eb 12/18 13:21 Order name: US Transvaginal Ob; Complete Time: 15:22 snw 12/18 14:33 Order name: ABO/RH no charge; Complete Time: 14:34 EDMS 12/18 15:19 Order name: HCG, Quantitative EDAL 12/18 15:20 Order name: Add On-Lab 12/18 12:11 Order name: EKG - Nurse/Tech; Complete Time: 12:28 snw 12/18 12:13 Order name: Urine Dipstick-Ancillary (obtain specimen); Complete Time: 13:17 snw 12/18 12:13 Order name: Urine Test (obtain specimen); Complete Time: 13:17 snw 12/18 12:59 Order name: Misc. Order: no urine holds; Complete Time: 13:09 snw 12/18 12:59 Order name: Orthostatics; Complete Time: 13:18 snw EC:42 Rate is 50 beats/min. Rhythm is regular. QRS [place] is Normal. TX interval is normal. QRS snw interval is normal. QT interval is normal. Clinical impression: Sinus bradycardia. Administered Medications: 12:28 Drug: NS 0.9% 1000 ml Route: IV; Rate: 1000 ml; Site: left antecubital; mb9 13:32 Drug: Rocephin (cefTRIAXone) 1 grams Route: IV; Rate: calculated rate; Site: left mb9 antecubital; Disposition Summary: 12/18/22 15:51 Discharge Ordered Location: Home snw Condition: Stable snw Diagnosis - Syncope Near snw - 8 weeks gestation of - No heart tones noted per Radiologist snw - UTI/ Urinary tract infection, site not specified snw Followup: snw - With: Emergency Department - When: As needed - Reason: Worsening of condition Followup: snw - With: Private Physician - When: 2 - 3 days - Reason: Recheck today's complaints, Continuance of care, Re-evaluation by your physician Discharge Instructions: - Discharge Summary Sheet snw - Dehydration, Adult snw - Syncope snw - Urinary Tract Infection, Adult snw - Rehydration, Adult snw Forms: - Medication Reconciliation Form snw - Thank You Letter snw - Antibiotic Education snw - Prescription Opioid Use snw Prescriptions: - Macrobid 100 mg Oral Capsule - take 1 capsule by ORAL route every 12 hours for 14 days; 28 capsule; Refills: snw 0, Product Selection Permitted Signatures: Dispatcher [employer] EDMS Mike Pulliam MD MD cha Waters, Shelly, RECONNAISSANCE CREWMEMBER-C RECONNAISSANCE CREWMEMBER-Csnw Leydi Rutledge, RN Whitney Howard RN RN mb9
[2022-12-18 16:10] VITALS: O2SAT 100
[2022-12-18 16:17] VITALS: BP 107/54
--- NOTE | 2022-12-21 18:49 | EKG ---
Test Date: 2022-12-18 Test Time: 12:21:16 Tire Bladder Maker: MB MEASUREMENT RESULTS: Intervals: Rate: 50 CA: 160 QRSD: 82 QT: 436 QTc: 397 [place] [address]: P: 41 CA: 160 QRS: 53 T: 35 INTERPRETIVE STATEMENTS: Sinus bradycardia Otherwise normal ECG No previous ECG available for comparison Electronically Signed On 12-21-22 18:43:39 CREWMAN MAIN BATTLE TANK by Yuri Ashford
== END 2022-12-18 16:06 | disposition home or self-care (01) ==
LOC: ER 11:57
DX: O23.41 Unspecified infection of urinary tract in pregnancy, first trimester (principal); O26.891 Other specified pregnancy related conditions, first trimester; Z3A.08 8 weeks gestation of pregnancy
CPT/HCPCS: 87088; 85025; 87086; 36415; 86900; 81025; 86901; 84702; 87077; 87186; 80053; 76817; 96374; 99284; J7030; 81003; 81015; 93005